=== PATIENT | male | born 1950 | race Caucasian/White ===

== ENCOUNTER 2016-08-13 14:49 | Emergency (ER) | payer MEDICARE, BC ==
[~2016-08-13] VITALS: Ht 170.2 cm; Wt 111.5 kg
[~2016-08-13 14:49] MED LIST: ALBU8.5H3 INH; AMIT25TA9; BENA40TA41 PO; DULO60CA59 PO; GLYB5TAB3 PO; MTF1000T PO; NITR-58 PO; OMEP40CA6 PO; PROC10TA10 PO; SIMV10TA76 PO; SODI15OR8 PO
[2016-08-13 14:54] VITALS: Ht 170.2 cm; Wt 111.5 kg
[2016-08-13] MEDS ORDERED: SOD CHLORIDE 0.9% 500 ML IV STA (18:20)
[2016-08-13] MEDS ORDERED: ONDANSETRON (ODT) 4 MG TAB ODT ONE (18:30)
[2016-08-13] MEDS ORDERED: HYDROCODONE/APAP (5/325) TAB PO ONE (18:30)
--- NOTE | 2016-08-13 18:41 | RADRPT ---
PROCEDURE: Chest x-ray CLINICAL INDICATION: Rib pain TECHNIQUE: Chest single view COMPARISON: 02/26/2013 FINDINGS: The heart is normal in size. The pulmonary vessels are normal in caliber. The lungs are clear. Th e costophrenic angles are sharp. The visualized bony thorax is unremarkable. No displaced rib fract ures identified. There is no pneumothorax. IMPRESSION: No acute cardiopulmonary disease. RPTAT: HH .Senthil Escobar MD, MD Date Time Electronically viewed and signed by .Senthil Escobar MD, on 08/13/2016 18:41 .W/
[2016-08-13] MEDS ORDERED: MONT10TA24 PO (19:03)
[2016-08-13] MEDS ORDERED: LINA5TAB PO (19:04)
[2016-08-13] MEDS ORDERED: IBUP800T25 PO (19:05)
[2016-08-13] MEDS ORDERED: ALBU90AE INHALATION (19:05)
[2016-08-13] MEDS ORDERED: ASPI-664 PO (19:06)
--- NOTE | 2016-08-13 19:09 | ERD ---
ER Documentation Chief Complaint Date/Time DATE: 08/13/16 TIME: 19:07 Chief Complaint fell 3 dAYS AGO,HAS RIB PAIN REPORTED HEMATURA AFTER, INCREASE URINATION, HPI 65-year-old male history of diabetes who states that he fell approximately 2 3 days ago. He states that he hit the left side of his ribs on a toilet. Since then the patient has had moderate to severe pain to the left upper quadrant of the abdomen and chest. The patient is Some shortness of breath, the pain is moderate to severe with associated hematuria. He denies any sukhwinder abdominal pain, no syncope. He describes clear mechanical fall. ROS All systems reviewed and are negative except as per history of present illness. Medications Home Meds Active Scripts Ondansetron (Ondansetron Odt) 4 Mg Tab.rapdis, 4 MG PO Q6H Y for NAUSEA AND/OR VOMITING, #10 TAB Prov:SILVIA AARON MD 08/13/16 Hydrocodone/Acetaminophen ([place] 10-325 Tablet) 1 Each Tablet, 1 TAB PO Q6H Y for PAIN, #7 TAB Prov:SILVIA AARON MD 08/13/16 Cephalexin* (Keflex*) 500 Mg Capsule, 500 MG PO BID for 7 Days, CAP Prov:SILVIA AARON MD 08/13/16 Reported Medications Aspirin* (Aspirin* EC) 81 Mg Tablet.dr, 81 MG PO DAILY, TAB 08/13/16 Ibuprofen* (Ibuprofen*) 800 Mg Tab, 800 MG PO Q6H Y for PAIN, TAB 08/13/16 Albuterol Sulfate (Proair Respiclick) 90 Mcg Aer.pow.ba, 1 PUFF INHALATION Q4, # 1 BOTTLE 08/13/16 Linagliptin (TRADJENTA) 5 Mg Tablet, 5 MG PO DAILY, TAB 08/13/16 Montelukast Sodium* (Montelukast Sodium*) 10 Mg Tablet, 10 MG PO QHS, #30 TAB 08/13/16 Simvastatin* (Zocor*) 10 Mg Tablet, 10 MG PO QHS, #30 TAB 03/26/16 Omeprazole* (Omeprazole*) 40 Mg Capsule.dr, 40 MG PO DAILY, #30 CAP 11/18/15 Amitriptyline Hcl* (Amitriptyline Hcl*) 25 Mg Tablet, 25 MG .ROUTE QHS, #30 TAB 09/09/15 Metformin* (Glucophage*) 1,000 Mg Tablet, 1000 MG PO BID, TAB 05/23/15 Benazepril Hcl* (Benazepril Hcl*) 40 Mg Tablet, 40 MG PO DAILY 06/26/12 Discontinued Reported Medications Prochlorperazine* (Prochlorperazine*) 10 Mg Tablet, 10 MG PO Q12 Y for NAUSEA, TAB 03/26/16 Duloxetine Hcl* (Duloxetine Hcl*) 60 Mg Capsule.dr, 60 MG PO DAILY, #30 CAP 03/26/16 Glyburide* (Glyburide*) 5 Mg Tablet, 5 MG PO DAILY, #30 TAB 09/09/15 Albuterol Sulfate* (Proair HFA*) 8.5 Gm Hfa.aer.ad, 2 PUFF INH Q6H Y for WHEEZING AND SOB, INH 03/25/15 Discontinued Scripts Sodium Polystyrene Sulfonate* (Kayexalate*) 15 Gm/60 Ml Susp, 30 GM PO once a day for 4 Days, ML Prov:DESTIN DALTONSTCANDYS Diana. DO 03/26/16 Nitrofurantoin Monohyd Macrocr* (Macrobid*) 100 Mg Capsr, 100 MG PO BID for 14 Days, CAP Prov:LEKKOS,APOSTOLOS A. DO 03/26/16 Allergies Allergies: Coded Allergies: No Known Allergy (Verified , 08/13/16) PMhx/Soc History of Surgery: Yes (GALL BLADDER) Anesthesia Reaction: No Hx Neurological Disorder: No Hx Respiratory Disorders: Yes (ASTHMA) Hx Cardiac Disorders: Yes (HTN, HIGH CHOLESTEROL) Hx Psychiatric Problems: No Hx Miscellaneous Medical Probl: No (Colon CA on chemo, DM.) Hx Alcohol Use: No Hx Substance Use: No Hx Tobacco Use: No FmHx Family History: diabetes Physical Exam Vitals Vital Signs Date Time Temp Pulse Resp B/P Pulse Ox O2 Delivery O2 Flow Rate FiO2 08/13/16 20:06 98.5 65 18 117/57 99 08/13/16 14:54 98.2 74 20 123/67 99 Physical Exam General: Well developed, well nourished, no acute distress Head: Normocephalic, atraumatic. Eyes: Pupils equally reactive, EOM intact ENT: Moist mucous membranes Neck: Supple, no lymphadenopathy Respiratory: Lungs clear bilaterally, no distress, no crepitus Cardiovascular: RRR, no murmurs, rubs, or gallops Abdominal: Soft, subtle tenderness to the left upper quadrant, no tenderness of CVA : Deferred MSK: No edema, no unilateral swelling, 5/5 strength Neurologic: Alert and oriented, moving all extremities, normal speech, no focal weakness, no cerebellar signs Skin: No rash Psych: Normal mood Result Diagram: 08/13/16190508/13/161905 Results 24 hrs Laboratory Tests Test 08/13/16 19:06 Activated Partial Thromboplast Time 29.9Sec Alanine Aminotransferase (ALT/SGPT) 16IU/L Albumin 4.4g/dl Alkaline Phosphatase 120IU/L Anion Gap 22 Aspartate Amino Transf (AST/SGOT) 13IU/L Blood Urea Nitrogen 57mg/dl Calcium Level 9.4mg/dl Carbon Dioxide Level 20mmol/L Chloride Level 108mmol/L Creatinine 1.75mg/dl Direct Bilirubin 0.00mg/dl Glucose Level 122mg/dl Hematocrit 42.5% Hemoglobin 14.2g/dl INR International Normalized Ratio 0.93 Indirect Bilirubin 0.0mg/dl Mean Corpuscular Hemoglobin 32.2pg Mean Corpuscular Hemoglobin Concent 33.3g/dl Mean Corpuscular Volume 96.7fl Mean Platelet Volume 10.0fl Platelet Count 79512^3/UL Potassium Level 5.4mmol/L Prothrombin Time 12.5Sec Prothrombin Time Ratio 1.0 Red Blood Count 4.4010^6/ul Red Cell Distribution Width 13.8% Sodium Level 145mmol/L Total Bilirubin 0.0mg/dl Total Protein 8.1g/dl White Blood Count 13.310^3/ul Current Medications Medications (Trade) Dose Ordered Sig/Alvin Route PRN Reason Start Time Stop Time Status Last Admin Dose Admin Sodium Chloride (NS) 500 ml @ 500 mls/hr Q1H STAT IV 08/13/16 18:20 08/13/16 19:19 DC 08/13/16 19:00 Acetaminophen/ Hydrocodone Bitart ([place] (5/325)) 2 tab ONCE ONCE PO 08/13/16 18:30 08/13/16 18:31 DC 08/13/16 19:11 Ondansetron HCl (Zofran Odt) 4 mg ONCE ONCE ODT 08/13/16 18:30 08/13/16 18:31 DC 08/13/16 18:59 Procedures/MDM EKG, MONITORS, & DIAGNOSTIC IMAGING: Chest x-ray: I reviewed and interpreted a 1 view of the chest Mediastinum: No enlargement Cardiac silhouette: No cardiomegaly Airspace: Clear lung garcia bilaterally without evidence of pneumothorax Bones: No evidence of fracture CT abdomen and pelvis: IMPRESSION: 1. No bowel obstruction or ileus. Small fat containing right upper abdominal ventral hernia. Moderate size right inguinal hernia containing non obstructed distal small bowel. There is mid sigmoid colon and S not sutures compatible with prior surgery without associated obstruction. 2. No evidence for appendicitis or diverticulitis. 3. Status post cholecystectomy. 4. Unchanged right renal cyst. No obstructive uropathy. Redemonstrated diffuse urinary bladder wall thickening. A chronic cystitis cannot be excluded. 5. Degenerative changes of the lumbar spine. LAB INTERPRETATION: No leukocytosis, no anemia, increased creatinine from baseline MEDICAL DECISION MAKING: The patient describes clear mechanical fall. The patient has evidence of left rib contusion. No evidence of fracture. Given the patient's report of hematuria concern for possible renal injury. CT imaging with IV contrast would be appropriate. No evidence of pneumothorax. The patient will be given pain control medication. ER COURSE: The patient continues to be well-appearing his pain is well controlled. The patient's creatinine is elevated. This is more likely related to chronic renal insufficiency in the setting of diabetes. I do not believe this is consistent with renal injury secondary to trauma. The patient has no evidence of acute intra-abdominal process based on CT imaging. The patient's CT did show evidence of possible chronic cystitis. Keflex will be provided. Patient has not urinated in the emergency department. At this time the patient's pain is well controlled. I advised the patient that he needs to follow-up with primary care physician this week to have repeat blood testing to evaluate for creatinine function. His laboratory testing and diagnostic imaging was printed out for follow-up benefit. Return precautions were discussed. I kept the patient and/or family informed of laboratory and diagnostic imaging results throughout the emergency room course. DISPOSITION PLAN: We discussed follow up with the patient's primary care doctor within 24 to 48 hours as needed. We also discussed return to the emergency room for worsening symptoms or worsening condition. Discharge Medications: [place], Zofran, Keflex We discussed the use of narcotics including avoidance of operating heavy machinery and driving as well as its addictive properties. Departure Diagnosis: Primary Impression: Cystitis Additional Impressions: Contusion of rib on left side Encounter type: initial encounter Qualified Code: S20.212A - Contusion of rib on left side, initial encounter Acute renal insufficiency Condition: Stable SILVIA AARON MD Aug 13, 2016 19:09
[2016-08-13 19:25] LABS: INR 0.93; PROTIME 12.5 Sec (12.2-14.2)
[2016-08-13 19:26] LABS: PARTIAL THROMBOPLASTIN TIME 29.9 Sec (25.0-35.0)
[2016-08-13 19:29] LABS: ALBUMIN 4.4 g/dl (3.3-4.9)
[2016-08-13 19:30] LABS: POTASSIUM 5.4 mmol/L (3.5-5.1)
[2016-08-13 19:32] LABS: CREATININE 1.75 mg/dl (0.61-1.24); TOTAL PROTEIN 8.1 g/dl (6.1-8.1)
[2016-08-13 19:33] LABS: CALCIUM 9.4 mg/dl (8.4-10.2)
[2016-08-13 19:37] LABS: HEMATOCRIT 42.5 % (42.0-52.0); HEMOGLOBIN 14.2 g/dl (14.0-18.0); MEAN CORPUSCULAR HEMOGLOBIN 32.2 pg (29.0-33.0); MEAN CORPUSCULAR HGB CONC 33.3 g/dl (32.0-37.0); MEAN CORPUSCULAR VOLUME 96.7 fl (82.0-101.0); PLATELET COUNT 155 10^3/UL (140-440); RED CELL DISTRIBUTION WIDTH 13.8 % (11.5-14.5); UNCORRECTED WBC 13.3 10^3/ul (4.8-10.8); WHITE BLOOD COUNT 13.3 10^3/ul (4.8-10.8)
[2016-08-13 19:43] LABS: CONDITION 1; LH ANALYZER COMMENTS 1; SUSPECT 1
--- NOTE | 2016-08-13 20:57 | RADRPT ---
PROCEDURE: CT Abdomen and Pelvis without contrast. CLINICAL INDICATION: Trauma. History of gallbladder surgery and colon cancer.. TECHNIQUE: CT scan of the abdomen and pelvis was performed on a multidetector slice CT scanner. N o intravenous contrast material was utilized. Sagittal and coronal reformatted images were obtained from the axial source images. Images were reviewed on a high-resolution PACS workstation. Exam CTDl vol = 24 mGy and DLP = 1439 Gy-cm. COMPARISON: 02/26/2013 FINDINGS: There is a fat containing right upper abdomen ventral hernia, unchanged. There is a moderate-sized distal small bowel containing inguinal hernia. There are mid sigmoid colon mass not sutures compatib le with prior resection. There is no associated proximal obstruction. There is no obstruction or il eus. The appendix is visualized and is normal in size. There is no evidence for acute appendicitis . There is no evidence for diverticulitis. There is no free fluid. The liver is overall normal in size. No intrahepatic lesions are identified. The gallbladder has b een removed. There is no definite biliary ductal dilation. Pancreas is normal in appearance. Splee n is unremarkable.. There are no adrenal masses. The aorta is normal caliber. There are atheroscler otic vascular calcifications. There is a 3.1 cm cyst in the midpole of the right kidney. Kidneys are otherwise normal in appearan ce without hydronephrosis, mass or calculus. Ureters are of normal caliber. Urinary bladder is con tracted with diffuse wall thickening, not significantly changed.. There are degenerative changes of the lower lumbar spine. Limited evaluation lung bases is unremarkable. IMPRESSION: 1. No bowel obstruction or ileus. Small fat containing right upper abdominal ventral hernia. Mode rate size right inguinal hernia containing non obstructed distal small bowel. There is mid sigmoid colon and S not sutures compatible with prior surgery without associated obstruction. 2. No evidence for appendicitis or diverticulitis. 3. Status post cholecystectomy. 4. Unchanged right renal cyst. No obstructive uropathy. Redemonstrated diffuse urinary bladder wa ll thickening. A chronic cystitis cannot be excluded. 5. Degenerative changes of the lumbar spine. RPTAT: [facility] .Palmer Galdamez MD, MD Date Time Electronically viewed and signed by .Palmer Galdamez MD, on 08/13/2016 20:57 .K/
[2016-08-13] MEDS ORDERED: HYDR-902 PO (21:15)
[2016-08-13] MEDS ORDERED: ONDA4TAB14 PO (21:15)
[2016-08-13] MEDS ORDERED: CEPH-443 PO (21:15)
[2016-08-13 21:18] VITALS: BP 120/61; PULSE 71; RESP 18; TEMP 98.5
[2016-08-13 23:28] LABS: BASOPHIL # 0.1 10^3/ul (0.0-0.1); EOSINOPHILS # 1.2 10^3/ul (0.0-0.5); LYMPHOCYTES # 2.5 10^3/ul (0.8-2.9); MONOCYTE # 1.3 10^3/ul (0.3-0.9); NEUTROPHIL # 8.1 10^3/ul (1.6-7.5)
[2016-08-13 23:29] LABS: ANISOCYTOSIS FEW; OVALOCYTES FEW; PLATELET ESTIMATE PLT APPEAR ADEQUATE
== END 2016-08-13 21:30 | disposition home or self-care (01) ==
LOC: E/R 14:49
DX: N30.91 Cystitis, unspecified with hematuria (principal); S20.212A Contusion of left front wall of thorax, initial encounter; N28.9 Disorder of kidney and ureter, unspecified; I10 Essential (primary) hypertension; E11.9 Type 2 diabetes mellitus without complications; J45.909 Unspecified asthma, uncomplicated; C18.9 Malignant neoplasm of colon, unspecified; W18.09XA Striking against other object with subsequent fall, initial encounter; Y92.9 Unspecified place or not applicable; Z79.82 Long term (current) use of aspirin; Z79.84 Long term (current) use of oral hypoglycemic drugs
CPT/HCPCS: 71010; 74176; 80048; 80076; 85025; 85610; 85730; 96360; 99285; J7040

== ENCOUNTER 2016-09-07 13:04 | Emergency (ER) | payer MEDICARE, BC ==
[~2016-09-07] VITALS: Wt 115.0 kg
[~2016-09-07 13:04] MED LIST changes: -ALBU8.5H3 INH; +ALBU90AE INHALATION; +ASPI-664 PO; +CEPH-443 PO; -DULO60CA59 PO; -GLYB5TAB3 PO; +HYDR-902 PO; +IBUP800T25 PO; +LINA5TAB PO; +MONT10TA24 PO; -NITR-58 PO; +ONDA4TAB14 PO; -PROC10TA10 PO; +SIMV10TA PO; -SIMV10TA76 PO; -SODI15OR8 PO
--- NOTE | 2016-09-07 17:55 | ERA ---
ER Documentation Chief Complaint Date/Time DATE: 09/07/16 TIME: 17:53 Chief Complaint Painful urination HPI The patient is a 65-year-old male, presenting to the ER because of painful urination for 1 day. He had similar symptom about 3 weeks ago and was treated with Keflex for acute cystitis. He denies fever, chills, neck pain, chest pain , dyspnea, abdominal pain, vomiting, dysuria, diarrhea, constipation. He does not smoke nor drink Past medical history: Asthma, hypertension, dyslipidemia, history of colon cancer treated with chemotherapy Past surgical history: Cholecystectomy ROS All systems reviewed and are negative except as per history of present illness. Medications Home Meds Active Scripts Phenazopyridine Hcl* (Pyridium*) 200 Mg Tab, 200 MG PO TID for 3 Days, TAB Prov:DEYVI WORLEY MD 09/07/16 Ciprofloxacin Hcl* (Ciprofloxacin Hcl*) 500 Mg Tablet, 500 MG PO BID for 10 Days , TAB Prov:DEYVI WORLEY MD 09/07/16 Reported Medications Insulin Glargine* (Lantus*) 100 Unit/Ml Soln, 10 UNIT SC BID, #1 VIAL 09/07/16 Aspirin* (Aspirin* EC) 81 Mg Tablet.dr, 81 MG PO DAILY, TAB 08/13/16 Ibuprofen* (Ibuprofen*) 800 Mg Tab, 800 MG PO Q6H Y for PAIN, TAB 08/13/16 Albuterol Sulfate (Proair Respiclick) 90 Mcg Aer.pow.ba, 1 PUFF INHALATION Q4, # 1 BOTTLE 08/13/16 Linagliptin (TRADJENTA) 5 Mg Tablet, 5 MG PO DAILY, TAB 08/13/16 Montelukast Sodium* (Montelukast Sodium*) 10 Mg Tablet, 10 MG PO QHS, #30 TAB 08/13/16 Simvastatin* (Zocor*) 10 Mg Tablet, 10 MG PO QHS, #30 TAB 03/26/16 Omeprazole* (Omeprazole*) 40 Mg Capsule.dr, 40 MG PO DAILY, #30 CAP 11/18/15 Amitriptyline Hcl* (Amitriptyline Hcl*) 25 Mg Tablet, 25 MG .ROUTE QHS, #30 TAB 09/09/15 Metformin* (Glucophage*) 1,000 Mg Tablet, 1000 MG PO BID, TAB 10/23/15 Benazepril Hcl* (Benazepril Hcl*) 40 Mg Tablet, 40 MG PO DAILY 06/26/12 Discontinued Scripts Ondansetron (Ondansetron Odt) 4 Mg Tab.rapdis, 4 MG PO Q6H Y for NAUSEA AND/OR VOMITING, #10 TAB Prov:SILVIA AARON MD 08/13/16 Hydrocodone/Acetaminophen ([place] 10-325 Tablet) 1 Each Tablet, 1 TAB PO Q6H Y for PAIN, #7 TAB Prov:SILVIA AARON MD 08/13/16 Cephalexin* (Keflex*) 500 Mg Capsule, 500 MG PO BID for 7 Days, CAP Prov:SILVIA AARON MD 08/13/16 Allergies Allergies: Coded Allergies: No Known Allergy (Verified , 09/07/16) PMhx/Soc History of Surgery: Yes (GALL BLADDER) Anesthesia Reaction: No Hx Neurological Disorder: No Hx Respiratory Disorders: Yes (ASTHMA) Hx Cardiac Disorders: Yes (HTN, HIGH CHOLESTEROL) Hx Psychiatric Problems: No Hx Miscellaneous Medical Probl: No (Colon CA on chemo, DM.) Hx Alcohol Use: No Hx Substance Use: No Hx Tobacco Use: No Physical Exam Vitals Vital Signs Date Time Temp Pulse Resp B/P Pulse Ox O2 Delivery O2 Flow Rate FiO2 09/07/16 13:15 99.1 69 18 120/86 97 Physical Exam Const: No acute distress. Head: Atraumatic. Eyes: Normal Conjunctiva. ENT: Normal External Ears, Nose and Mouth. Neck: Full range of motion. No meningismus. Resp: Clear to auscultation bilaterally. Cardio: Regular rate and rhythm, no murmurs. Abd: Soft, non distended, normal bowel sounds, mild suprapubic tenderness, no CVA, rigidity, rebound tenderness Skin: No petechiae or rashes. Back: No midline or flank tenderness. Ext: No cyanosis, or edema. Neur: Awake and alert. No focal deficit Psych: Normal Mood and Affect. Result Diagram: 09/07/16191409/07/161914 Results 24 hrs Laboratory Tests Test 09/07/16 19:15 09/07/16 20:28 Alanine Aminotransferase (ALT/SGPT) 20IU/L Albumin 4.3g/dl Albumin/Globulin Ratio 1.19 Alkaline Phosphatase 145IU/L Anion Gap 19 Aspartate Amino Transf (AST/SGOT) 17IU/L Basophils # 0.110^3/ul Basophils % 0.5% Blood Urea Nitrogen 39mg/dl Calcium Level 9.6mg/dl Carbon Dioxide Level 25mmol/L Chloride Level 99mmol/L Creatinine 1.21mg/dl Direct Bilirubin 0.00mg/dl Eosinophils # 1.210^3/ul Eosinophils % 10.3% Globulin 3.60g/dl Glucose Level 231mg/dl Hematocrit 44.2% Hemoglobin 14.9g/dl Indirect Bilirubin 0.1mg/dl Lipase 146U/L Lymphocytes # 3.410^3/ul Lymphocytes % 29.1% Mean Corpuscular Hemoglobin 32.1pg Mean Corpuscular Hemoglobin Concent 33.6g/dl Mean Corpuscular Volume 95.5fl Mean Platelet Volume 8.7fl Monocytes # 0.910^3/ul Monocytes % 7.4% Neutrophils # 6.210^3/ul Neutrophils % 52.7% Nucleated Red Blood Cells # 0.010^3/ul Nucleated Red Blood Cells % 0.0/100WBC Platelet Count 98638^3/UL Potassium Level 5.3mmol/L Red Blood Count 4.6310^6/ul Red Cell Distribution Width 13.1% Sodium Level 138mmol/L Total Bilirubin 0.1mg/dl Total Protein 7.9g/dl White Blood Count 11.810^3/ul Bedside Urine Blood 3+ Bedside Urine Glucose (UA) Negative Bedside Urine Ketones (LAB) Negative Bedside Urine Leukocyte Esterase (L 3+ Bedside Urine Nitrite (LAB) Negative Bedside Urine Protein (LAB) 2+ Bedside Urine pH (LAB) 5.5 Current Medications Medications (Trade) Dose Ordered Sig/Alvin Route PRN Reason Start Time Stop Time Status Last Admin Dose Admin Sodium Chloride (NS) 500 ml @ 500 mls/hr Q1H ONCE IV 09/07/16 20:00 09/07/16 20:59 09/07/16 20:10 Procedures/MDM MEDICAL MAKING DECISION: The patient is a 65-year-old male, presenting with acute cystitis and acute dehydration. He was treated with normal saline 100 mm IV for acute dehydration with good response. The differential diagnoses considered include but are not limited to cholelithiasis, cholecystitis, cystitis, pancreatitis, hepatitis, gastritis, peptic ulcer disease, gastric ulcer, appendicitis, diverticulitis, cholangitis, choledocholithiasis, partial small bowel obstruction. Departure Diagnosis: Primary Impression: UTI (urinary tract infection) Condition: Good Comments He was discharged with Cipro and Pyridium I discussed the findings with the patient. I advised the patient to follow-up with the primary physician in about 1-2 days, sooner if needed and return if any concern. DEYVI WORLEY MD Sep 07, 2016 17:54
[2016-09-07 19:26] LABS: BASOPHIL # 0.1 10^3/ul (0.0-0.1); BASOPHILS % 0.5 % (0.0-2.0); EOSINOPHILS # 1.2 10^3/ul (0.0-0.5); EOSINOPHILS % 10.3 % (0.0-7.0); HEMATOCRIT 44.2 % (42.0-52.0); HEMOGLOBIN 14.9 g/dl (14.0-18.0); LYMPHOCYTES # 3.4 10^3/ul (0.8-2.9); LYMPHOCYTES % 29.1 % (15.0-51.0); MEAN CORPUSCULAR HEMOGLOBIN 32.1 pg (29.0-33.0); MEAN CORPUSCULAR HGB CONC 33.6 g/dl (32.0-37.0); MEAN CORPUSCULAR VOLUME 95.5 fl (82.0-101.0); MEAN PLATELET VOLUME 8.7 fl (7.4-10.4); MONOCYTE # 0.9 10^3/ul (0.3-0.9); MONOCYTES % 7.4 % (0.0-11.0); NEUTROPHIL # 6.2 10^3/ul (1.6-7.5); NEUTROPHILS % 52.7 % (39.0-77.0); PLATELET COUNT 178 10^3/UL (140-440); RED BLOOD COUNT 4.63 10^6/ul (4.70-6.10); RED CELL DISTRIBUTION WIDTH 13.1 % (11.5-14.5); UNCORRECTED WBC 11.8 10^3/ul (4.8-10.8); WHITE BLOOD COUNT 11.8 10^3/ul (4.8-10.8)
[2016-09-07 19:27] LABS: CONDITION 1
[2016-09-07 19:33] LABS: ALBUMIN 4.3 g/dl (3.3-4.9); POTASSIUM 5.3 mmol/L (3.5-5.1)
[2016-09-07 19:35] LABS: CREATININE 1.21 mg/dl (0.61-1.24)
[2016-09-07 19:36] LABS: ALBUMIN/GLOBULIN RATIO 1.19; BILIRUBIN,INDIRECT 0.1 mg/dl (0-1.1); BILIRUBIN,TOTAL 0.1 mg/dl (0.2-1.3); CALCIUM 9.6 mg/dl (8.4-10.2); TOTAL PROTEIN 7.9 g/dl (6.1-8.1)
[2016-09-07] MEDS ORDERED: SOD CHLORIDE 0.9% 500 ML IV ONE (20:00)
[2016-09-07] MEDS ORDERED: LANT3I SC (20:02)
[2016-09-07 20:28] LABS: URINE BLOOD (Dip) POC 3+ (NEGATIVE)
[2016-09-07] MEDS ORDERED: PHEN-538 PO (20:32)
[2016-09-07] MEDS ORDERED: CIPR500T4 PO (20:32)
[2016-09-07 21:12] VITALS: BP 146/87; PULSE 78; RESP 18
== END 2016-09-07 21:14 | disposition home or self-care (01) ==
LOC: E/R 13:04
DX: N39.0 Urinary tract infection, site not specified (principal); J45.909 Unspecified asthma, uncomplicated; I10 Essential (primary) hypertension; C18.9 Malignant neoplasm of colon, unspecified; E11.9 Type 2 diabetes mellitus without complications; Z79.4 Long term (current) use of insulin; Z79.84 Long term (current) use of oral hypoglycemic drugs; Z79.82 Long term (current) use of aspirin
CPT/HCPCS: 36415; 80053; 81003; 83690; 85025; 87086; 99284; J7040

== ENCOUNTER 2017-02-26 10:25 | Emergency (ER) | payer MEDICARE, BC ==
[~2017-02-26] VITALS: Ht 162.6 cm; Wt 125.0 kg
[~2017-02-26 10:25] MED LIST changes: -CEPH-443 PO; +CIPR500T4 PO; -HYDR-902 PO; +LANT3I SC; -ONDA4TAB14 PO; +PHEN-538 PO
[2017-02-26 10:26] VITALS: Ht 162.6 cm; Wt 125.0 kg
[2017-02-26] MEDS ORDERED: BEN25 PO (10:44)
[2017-02-26] MEDS ORDERED: CLOT30CR24 TOP (10:44)
--- NOTE | 2017-02-26 10:57 | ERD ---
ER Documentation Chief Complaint Date/Time DATE: 02/26/17 TIME: 10:49 Chief Complaint GENERALIZED BODY ITCHINESS; BACK PAIN HPI This is a 66-year-old male that presents to the ER with an itchy rash for the last 4 days. Patient states that rash started on his forehead and then moved onto his head, chest and buttocks. Patient states that rash is very itchy, and not painful. Patient has not had any fevers or chills. There is no swelling to the area. He states that rash is worsening, he denies any contact with any new substances or foods. Denies any difficulty in breathing, swallowing. He denies any swelling of his tongue eyes or mouth. Patient has a past medical history of diabetes and hypertension, he states he is compliant with his medication. Patient denies any chest pain or shortness of breath. Patient lives at home by himself, and does not have any contacts which are experiencing similar symptoms. He has not traveled anywhere. Patient has not started any new medications. ROS 12 point review of systems was done, all negative except per HPI. Medications Home Meds Active Scripts Clotrimazole* (Clotrimazole* AF) 1% - 30 Gm Cream.gm., 1 APPLIC TOP BID for 7 Days, TUB Prov:AARON FRIEDMAN 02/26/17 Diphenhydramine Hcl* (Benadryl*) 25 Mg Cap, 25 MG PO Q6 Y for ITCHING/RASH, #30 TAB Prov:AARON FRIEDMAN 02/26/17 Phenazopyridine Hcl* (Pyridium*) 200 Mg Tab, 200 MG PO TID for 3 Days, TAB Prov:DEYVI WORLEY MD 09/07/16 Ciprofloxacin Hcl* (Ciprofloxacin Hcl*) 500 Mg Tablet, 500 MG PO BID for 10 Days , TAB Prov:DEYVI WORLEY MD 09/07/16 Reported Medications Insulin Glargine* (Lantus*) 100 Unit/Ml Soln, 10 UNIT SC BID, #1 VIAL 09/07/16 Aspirin* (Aspirin* EC) 81 Mg Tablet.dr, 81 MG PO DAILY, TAB 08/13/16 Ibuprofen* (Ibuprofen*) 800 Mg Tab, 800 MG PO Q6H Y for PAIN, TAB 08/13/16 Albuterol Sulfate (Proair Respiclick) 90 Mcg Aer.pow.ba, 1 PUFF INHALATION Q4, # 1 BOTTLE 08/13/16 Linagliptin (TRADJENTA) 5 Mg Tablet, 5 MG PO DAILY, TAB 08/13/16 Montelukast Sodium* (Montelukast Sodium*) 10 Mg Tablet, 10 MG PO QHS, #30 TAB 08/13/16 Simvastatin* (Zocor*) 10 Mg Tablet, 10 MG PO QHS, #30 TAB 03/26/16 Omeprazole* (Omeprazole*) 40 Mg Capsule.dr, 40 MG PO DAILY, #30 CAP 11/18/15 Amitriptyline Hcl* (Amitriptyline Hcl*) 25 Mg Tablet, 25 MG .ROUTE QHS, #30 TAB 09/09/15 Metformin* (Glucophage*) 1,000 Mg Tablet, 1000 MG PO BID, TAB 05/23/15 Benazepril Hcl* (Benazepril Hcl*) 40 Mg Tablet, 40 MG PO DAILY 06/26/12 Allergies Allergies: Coded Allergies: No Known Allergy (Verified , 09/07/16) PMhx/Soc History of Surgery: Yes (GALL BLADDER, Colon resection, arthroscopy knee) Anesthesia Reaction: No Hx Neurological Disorder: No Hx Respiratory Disorders: Yes (ASTHMA) Hx Cardiac Disorders: Yes (HTN, HIGH CHOLESTEROL) Hx Psychiatric Problems: No Hx Miscellaneous Medical Probl: Yes (Colon CA, DM.) Hx Alcohol Use: No Hx Substance Use: No Hx Tobacco Use: No Smoking Status: Never smoker Physical Exam Vitals Vital Signs Date Time Temp Pulse Resp B/P Pulse Ox O2 Delivery O2 Flow Rate FiO2 02/26/17 10:26 98.8 88 19 110/66 96 Physical Exam GENERAL: The patient is well developed and appropriate for usual state of health , in no apparent distress. Patient is significantly overweight. HEENT: Atraumatic. The oropharynx is clear with no erythema or exudates, there is no swelling of lips tongue mouth or eyes. CHEST: Clear to auscultation bilaterally. There are no rales, wheezes or rhonchi. HEART: Regular rate and rhythm. No murmurs, clicks, rubs or gallops. NEURO: Alert and oriented. SKIN: There is a papular rash to the forehead, chest and buttock. Patient's rash is worse under the left breast, and has turned beefy red. no mucosal membrane involvement. No petechiae no purpura. No discharge, warmth to the touch. Procedures/MDM Differential Diagnosis: dermatitis, allergic urticaria, viral exanthem, insect bite, fungal infectio ,viral exanthem, hand foot mouth disease, , impetigo, cellulitis, abscess, shailesh mitra syndrome, meningocemia, necrotizing fasciitis. This is a 66-year-old male presents to the ER with an itchy rash for the last 4 days. Etiology of rash is unknown at this time, however suspicion for infection is low as patient is afebrile and well-appearing there is also no discharge to the area and area is not warm to the touch. Patient does have some Katt under the left breast likely secondary to being overweight and a lot of moisture to the area. Patient will be sent home with clotrimazole for this. He will be given Benadryl for itchiness any potential allergic reaction. Suspicion for shingles is low as area is not in 1 dermatome and these are not vesicular lesions. She is extremely well-appearing he is not septic, I doubt meningococcemia. Patient's vital signs are stable with no signs or symptoms of sepsis, hypotension. Patient needs to follow-up with his primary care doctor within 1-2 days return to ER sooner if symptoms worsen. Patient my medical decision making with the patient he understands and agrees with plan. Departure Diagnosis: Primary Impression: Rash Condition: Stable Patient Instructions: Self-Care for Skin Rashes Referrals: DAVON SPICER (PCP) Additional Instructions: Llame al doctor CORTES y darryl antonella ZARIA PARA DENTRO DE 1-2 [place].Dgale a la secretaria que nosotros le instruimos hacer esta zaria.Avise o llame si lindquist condicin se empeora antes de la zaria. Regresa aqui si peor o no mejor. AARON FRIEDMAN Feb 26, 2017 10:57
== END 2017-02-26 11:00 | disposition home or self-care (01) ==
LOC: FTE 10:25
DX: R21 Rash and other nonspecific skin eruption (principal); I10 Essential (primary) hypertension; J45.909 Unspecified asthma, uncomplicated; E11.9 Type 2 diabetes mellitus without complications; Z79.4 Long term (current) use of insulin; Z85.038 Personal history of other malignant neoplasm of large intestine; Z79.84 Long term (current) use of oral hypoglycemic drugs; Z79.82 Long term (current) use of aspirin
CPT/HCPCS: 99283

== ENCOUNTER → 2017-12-20 | Outpatient (CLI) | END | disposition home or self-care (01) ==

== ENCOUNTER 2018-05-02 01:10 | Inpatient (IN) | END 2018-05-09 18:11 | disposition home or self-care (01) | DRG 872 ==